=== PATIENT | male | born 1990 | race Caucasian/White ===

== ENCOUNTER 2017-08-16 21:42 | Emergency (ER) | payer OTHER, SELFPAY ==
[~2017-08-16] VITALS: Ht 177.8 cm; Wt 80.0 kg
[2017-08-16 22:52] LABS: HEMATOCRIT 42.4 % (39.2-51.8); HEMOGLOBIN 14.2 g/dL (13.7-18.0); WHITE BLOOD COUNT 7.9 x10^3/uL (3.4-10)
[2017-08-16 23:01] LABS: ASPARTATE AMINO TRANSFERASE 20 U/L (15-37); BLOOD UREA NITROGEN 19 mg/dL (7-18)
[2017-08-16 23:36] VITALS: BP 124/79
== END 2017-08-16 23:38 | disposition home or self-care (01) ==
LOC: ED 23:30
DX: K29.00 Acute gastritis without bleeding (principal); Z90.49 Acquired absence of other specified parts of digestive tract; Z88.1 Allergy status to other antibiotic agents
CPT/HCPCS: 36415; 80053; 83690; 85025; 86677; 93005; 99285

== ENCOUNTER 2017-11-18 19:09 | Emergency (ER) | payer SELFPAY ==
[~2017-11-18] VITALS: Ht 177.8 cm; Wt 75.5 kg
[2017-11-18 19:31] VITALS: BP 146/98
[2017-11-18 21:16] LABS: HEMATOCRIT 45.9 % (39.2-51.8); HEMOGLOBIN 15.3 g/dL (13.7-18.0); WHITE BLOOD COUNT 7.6 x10^3/uL (3.4-10)
[2017-11-18 21:28] LABS: ASPARTATE AMINO TRANSFERASE 21 U/L (15-37); BLOOD UREA NITROGEN 18 mg/dL (7-18)
== END 2017-11-18 22:07 | disposition home or self-care (01) ==
LOC: ED 21:46
DX: G44.049 Chronic paroxysmal hemicrania, not intractable (principal)
CPT/HCPCS: 36415; 70450; 71010; 80053; 84443; 85025; 93005; 99285

== ENCOUNTER 2019-11-02 10:09 | Emergency (ER) | payer MEDICAID ==
[~2019-11-02] VITALS: Ht 177.8 cm; Wt 78.8 kg
--- NOTE | 2019-11-02 10:43 | NUR ---
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
[2019-11-02] MEDS ORDERED: ONDANSETRON 2MG/ML, 2ML ONE (11:22)
[2019-11-02] MEDS ORDERED: KETOROLAC 60 MG/2 ML ONE (11:22)
[2019-11-02 11:30] VITALS: BP 112/72
[2019-11-02] MEDS ORDERED: KETOROLAC 30 MG/1 ML IVPush ONE (11:30)
[2019-11-02] MEDS ORDERED: SODIUM CHLORIDE FLUSH 10ML SYR IVF ONE (11:30)
[2019-11-02] MEDS ORDERED: ONDANSETRON 2MG/ML, 2ML IVPush ONE (11:30)
--- NOTE | 2019-11-02 11:54 | NUR ---
RECIEVED BEDSIDE REPORT FROM LES KIM.
[2019-11-02 11:59] LABS: RAPID INFLUENZA A Negative (Negative); RAPID INFLUENZA B POSITIVE (Negative)
--- NOTE | 2019-11-02 12:33 | NUR ---
Patient/Caregiver given discharge instructions and they have confirmed that they understand the instructions. Patient ambulatory with steady gait.
== END 2019-11-02 12:46 | disposition home or self-care (01) ==
LOC: ED 12:30
DX: J10.1 Influenza due to other identified influenza virus with other respiratory manifestations (principal); J31.0 Chronic rhinitis; R51 Headache; M54.5 Low back pain; M79.10 Myalgia, unspecified site; Z90.89 Acquired absence of other organs
CPT/HCPCS: 71046; 87400; 96374; 96375; 99284; J1885; J2405